=== PATIENT | male | born 1945 | race Caucasian/White ===

== ENCOUNTER 2016-11-15 00:14 | Inpatient (IN) | payer OTHER, MEDICARE ==
[2016-11-15] VITALS (32 sets, daily range): BP systolic 62–144; BP diastolic 43–88; PULSE 58–83; RESP 16–25; TEMP 94.6–99.5; O2SAT 92–100
[~2016-11-15] VITALS: Ht 177.8 cm; Wt 82.3 kg
[~2016-11-15 00:14] MED LIST: ALBU8I INH; ALLO100T PO; ALPR.25 PO; CARV12.52 PO; CITA20TA4 PO; DIGO0.25 PO; DUONI NEB; FURO1TAB93 PO; GABA300 PO; LEVA750T PO; MIRT15TA2 PO; OXYC1SOL5 PO; POTA-243 PO; PRED10PA PO; SIMV20 PO; SYMB160A INH
[2016-11-15] MEDS ORDERED: SODIUM CHLORIDE 0.9% FLUSH 5 ML FLUSH IVF PRN (00:30)
[2016-11-15] MEDS ORDERED: ETOMIDATE 20 MG/10 ML VIAL ONE (00:30)
[2016-11-15] MEDS ORDERED: PROPOFOL 1000 MG/100 ML INJ 100 ML ONE (00:38)
[2016-11-15] MEDS ORDERED: PROPOFOL 1000 MG/100 ML INJ 100 ML IV SCH (00:45)
[2016-11-15] MEDS ORDERED: ETOMIDATE 20 MG/10 ML VIAL IV PUSH ONE (00:45)
[2016-11-15] MEDS ORDERED: VANCOMYCIN INJ 1,000 MG in SODIUM CHLOR 0.9% 250 ML INJ 250 ML IV ONE (00:45)
[2016-11-15] MEDS ORDERED: SUCCINYLCHOLINE CHLORIDE 200 MG/10 ML VIAL IV PUSH ONE (00:45)
[2016-11-15] MEDS ORDERED: CEFEPIME INJ 2,000 MG in SODIUM CHLORIDE 0.9% INJ 100 ML IV ONE (00:45)
[2016-11-15] MEDS ORDERED: SODIUM CHLOR 0.9% 1000 ML INJ 1,000 ML IV ONE ×2 (00:45)
--- NOTE | 2016-11-15 01:01 | RADRPT ---
EXAM DATE/TIME: 11/15/2016 00:38 [facility] COMPARISON: No previous studies available for comparison. INDICATIONS : Post intubation. MEDICAL HISTORY : None. SURGICAL HISTORY : None. ENCOUNTER: Initial ACUITY: 1 day PAIN SCORE: Non-responsive. LOCATION: Bilateral chest FINDINGS: The ET tube appears to be in good position overlying the tracheal air shadow. There is no pneumothora x. The right lung is clear and well-aerated. There is an infiltrate in the left lung base suggestive of atelectasis. The heart size is enlarged. There is evidence of previous cardiothoracic surgery. The re is a pacemaker overlying the left chest. Bony structures are grossly intact. CONCLUSION: ET tube in good position. No pneumothorax. Santy Garcia MD on November 15, 2016 at 0:59 Board Certified Radiologist. This report was verified electronically.
--- NOTE | 2016-11-15 01:04 | RADRPT ---
EXAM DATE/TIME: 11/15/2016 00:54 [facility] COMPARISON: No previous studies available for comparison. INDICATIONS : Found unresponsive. RADIATION DOSE: 50.33 CTDIvol (mGy) MEDICAL HISTORY : Non-responsive. SURGICAL HISTORY : Non-responsive. ENCOUNTER: Initial ACUITY: 1 day PAIN SCALE: Non-responsive LOCATION: cranial TECHNIQUE: Multiple contiguous axial images were obtained of the head. Using automated exposure control and adj ustment of the mA and/or kV according to patient size, radiation dose was kept as low as reasonably a chievable to obtain optimal diagnostic quality images. FINDINGS: CEREBRUM: The ventricles are normal for age. There is bilateral cortical atrophy. No evidence of midline shift , mass lesion, hemorrhage or acute infarction. No extra-axial fluid collections are seen. POSTERIOR FOSSA: The cerebellum and brainstem are intact. The 4th ventricle is midline. The cerebellopontine angle i s unremarkable. EXTRACRANIAL: The visualized portion of the orbits is intact. SKULL: The calvaria is intact. No evidence of skull fracture. CONCLUSION: 1. No focal or acute intracranial hemorrhage. 2. Bilateral cortical atrophy. Santy Garcia MD on November 15, 2016 at 1:01 Board Certified Radiologist. This report was verified electronically.
[2016-11-15 01:29] LABS: BLOOD, URINE NEG (NEG); COMMENT (UR) CATH-CULT NOT IND; CULTURE IF INDICATED CATH CULTURE NOT IND; GLUCOSE,URINE NEG (NEG); HYALINE CAST, URINE 3 /lpf (RARE); KETONE, URINE NEG (NEG); MUCUS URINE FEW /lpf (OCC); NITRITE,URINE NEG (NEG); PH, URINE 5.5 (5.0-8.5); RENAL EPITHELIAL CELLS <1 /hpf; SQUAMOUS EPITHELIAL CELL URINE <1 /hpf (0-5); URINE COLOR YELLOW (YELLW/STRAW)
[2016-11-15 01:38] LABS: AMPHETAMINE, URINE NEG (NEG); BARBITURATES, URINE NEG (NEG); COCAINE, URINE NEG (NEG)
[2016-11-15 01:40] LABS: BLOOD GAS CARBOXYHEMOGLOBIN 2.4 % (0-4); BLOOD GAS HCO3 25 mmol/L (22-26); BLOOD GAS O2 HGB SATURATION 96 % (90-100); BLOOD GAS OXYGEN CONTENT 18.7 Vol % (12.0-20.0); BLOOD GAS PCO2 51 mmHg (38-42); BLOOD GAS PO2 364 mmHG (61-120); BLOOD GAS TOTAL HGB 13.3 G/DL (12.0-16.0); CRITICAL VALUE YES; DRAW SITE RT BRACHIAL; FIO2 100 %; OXYGEN DEVICE VENTILATOR; TEMP CORR TO 98.6; VENT SETTINGS SEE COMMENTS
[2016-11-15 01:41] LABS: NUMBER OF ARTERIAL PUNCTURES 1; STAT NO
[2016-11-15 01:47] LABS: AUTOMATED NEUTROPHIL # 10.8 TH/MM3 (1.8-7.7); BASOPHIL % 0.1 % (0.0-2.0); EOSINOPHIL % 0.1 % (0.0-4.0); HEMATOCRIT 39.7 % (39.0-51.0); HEMO FLAGS DIFF FINAL; LYMPH % 3.1 % (9.0-44.0); LYMPHOCYTE # 0.4 TH/MM3 (1.0-4.8); MEAN CELL VOLUME 94.7 FL (80.0-100.0); MEAN CORPUSCULAR HGB CONC 33.8 % (32.0-36.0); MONO % 5.6 % (0.0-8.0); NEUT % 91.1 % (16.0-70.0); PLATELET COUNT 111 TH/MM3 (150-450); RED BLOOD COUNT 4.19 MIL/MM3 (4.50-5.90); RED CELL DISTRIBUTION WIDTH 14.2 % (11.6-17.2); WHITE BLOOD COUNT 11.9 TH/MM3 (4.0-11.0)
[2016-11-15 02:01] LABS: APTT (PATIENT) 21.2 SEC (24.3-30.1); PROTHROMBIN TIME - PATIENT 11.4 SEC (9.8-11.6)
[2016-11-15 02:18] LABS: ACETAMINOPHEN LESS THAN 2.0 MCG/ML (10.0-30.0); ALKALINE PHOSPHATASE 77 U/L (45-117); ALT (GPT) 135 U/L (12-78); ANION GAP 3 MEQ/L (5-15); AST (GOT) 80 U/L (15-37); BICARBONATE 33.3 MEQ/L (21.0-32.0); BLOOD UREA NITROGEN 18 MG/DL (7-18); CALCIUM-PROTEIN CORRECTED 8.1 MG/DL (8.5-10.1); CHLORIDE 105 MEQ/L (98-107); GLOMERULAR FILTRATION RATE 60 ML/MIN (>89); POTASSIUM 5.7 MEQ/L (3.5-5.1); SODIUM (NA) 141 MEQ/L (136-145); TOTAL BILIRUBIN ADULT 1.5 MG/DL (0.2-1.0)
[2016-11-15 02:47] LABS: BLOOD GAS BASE EXCESS -2.1 mmol/L (-2-2); BLOOD GAS CARBOXYHEMOGLOBIN 2.4 % (0-4); BLOOD GAS HCO3 23 mmol/L (22-26); BLOOD GAS METHEMOGLOBIN 1.9 % (0-2); BLOOD GAS O2 HGB SATURATION 88 % (90-100); BLOOD GAS OXYGEN CONTENT 15.6 Vol % (12.0-20.0); BLOOD GAS PCO2 45 mmHg (38-42); BLOOD GAS PO2 59 mmHG (61-120); BLOOD GAS TOTAL HGB 12.5 G/DL (12.0-16.0); TEMP CORR TO 98.6
[2016-11-15 02:48] LABS: CRITICAL VALUE YES; OXYGEN DEVICE VENTILATOR
[2016-11-15 02:49] LABS: FIO2 40 %
[2016-11-15 02:50] LABS: DRAW SITE RT BRACHIAL; NUMBER OF ARTERIAL PUNCTURES 1; STAT NO
[2016-11-15] MEDS: SODIUM CHLOR 0.9% 1000 ML INJ 1,000 ML IV SCH ×3 (03:41→17:01)
[2016-11-15] MEDS ORDERED: METOCLOPRAMIDE HCL 10 MG/2 ML VIAL IV PRN (03:45)
[2016-11-15] MEDS ORDERED: CHLORHEXIDINE GLUCONATE 2 % 1 PACK (2 CLOTHS) TOP PRN (03:45)
[2016-11-15] MEDS ORDERED: SODIUM CHLORIDE 0.9% FLUSH 5 ML FLUSH IV FLUSH PRN (03:45)
[2016-11-15] MEDS ORDERED: ONDANSETRON HCL 4 MG/2 ML VIAL IV PRN (03:45)
[2016-11-15] MEDS ORDERED: ACETAMINOPHEN 325 MG TAB PO PRN (03:45)
[2016-11-15] MEDS ORDERED: MISCELLANEOUS NURSING INFORMATION XX SCH (03:45)
[2016-11-15] MEDS ORDERED: MIDAZOLAM HCL 2 MG/2 ML VIAL IV PRN (03:45)
--- NOTE | 2016-11-15 03:52 | HHI.HP ---
HPI Service Critical Care Medicine Primary Care Physician Unknown Admission Diagnosis altered mental status Diagnosis: Travel History International Travel<30 Days: No Contact w/Intl Traveler <30 Da: No Traveled to Known Affected Are: No History of Present Illness 60s-70s year old gentleman who presented to the emergency department having been found by his roommate unresponsive. There were large amount of pills in the room and his roommate says that he does take a lot of opiates. The patient was found not to have a gag reflex, he was given 1.6 of Narcan without improvement. He was intubated without any medications. He was hypotensive and was started on dopamine by EMS. Review of Systems ROS Unable to obtain, patient is unresponsive and intubated. Past Family Social History Allergies: Coded Allergies: UNOBTAINABLE (Unverified , 11/15/16) Past Medical History Unable to obtain, patient is unresponsive and intubated. Past Surgical History Unable to obtain, patient is unresponsive and intubated. Reported Medications Unable to obtain, patient is unresponsive and intubated. Active Ordered Medications Current Medications Medications (Trade) Dose Ordered Sig/Brent Route PRN Reason Start Time Stop Time Status Last Admin Dose Admin Propofol 100 ml @ 0 mls/hr TITRATE IV 11/15/16 00:45 11/15/16 02:31 Sodium Chloride (NS 1000 ml Inj) 1,000 ml @ 150 mls/hr Q6H40M IV 11/15/16 03:41 IV Flush (NS Flush) 2 ml UNSCH PRN IV FLUSH FLUSH AFTER USING IV ACCESS 11/15/16 03:45 IV Flush (NS Flush) 2 ml BID IV FLUSH 11/15/16 09:00 Acetaminophen (Tylenol) 650 mg Q6H PRN PO PAIN 1-10 AND/OR FEVER >101F 11/15/16 03:45 Morphine Sulfate (Morphine Inj) 2 mg Q2H PRN IV PAIN SCALE 6 TO 10 11/15/16 03:45 Famotidine (Pepcid Inj) 20 mg Q12HR IV PUSH 11/15/16 09:00 Midazolam HCl (Versed Inj) 2 mg Q1H PRN IV SEDATION 11/15/16 03:45 Lorazepam (Ativan Inj) 1 mg Q1H PRN IV Agitation/Sedation 11/15/16 03:45 Artificial Tears (Tears Naturale Opth Soln) 1 drop TID EACH EYE 11/15/16 09:00 Ondansetron HCl (Zofran Inj) 4 mg Q6H PRN IV NAUSEA OR VOMITING 11/15/16 03:45 Metoclopramide HCl (Reglan Inj) 10 mg Q6H PRN IV NAUSEA OR VOMITING 11/15/16 03:45 Docusate Sodium (Colace Liq) 100 mg Q12HR G-TUBE 11/15/16 09:00 Heparin Sodium (Porcine) (Heparin Inj) 5,000 units Q12HR SQ 11/15/16 09:00 Miscellaneous Information 1 Q361D XX 11/15/16 03:45 Chlorhexidine Gluconate (Chlorhexidine 2% Cloth) 3 pack Taper DAILY@04 TOP 11/15/16 04:00 11/11/17 03:59 Chlorhexidine Gluconate (Chlorhexidine 2% Cloth) 3 pack UNSCH PRN TOP HYGIENIC CARE 11/15/16 03:45 Family History Unable to obtain, patient is unresponsive and intubated. Social History Unable to obtain, patient is unresponsive and intubated. Physical Exam Vital Signs Vital Signs Date Time Temp Pulse Resp B/P Pulse Ox O2 Delivery O2 Flow Rate FiO2 11/15/16 02:15 59 24 106/68 98 Ventilator 40 11/15/16 02:00 60 24 103/60 97 Ventilator 40 11/15/16 01:45 60 24 144/88 100 Ventilator 40 11/15/16 01:30 59 24 87/55 100 Ventilator 40 11/15/16 01:15 60 24 142/73 100 Ventilator 40 11/15/16 01:00 60 24 137/71 100 Ventilator 40 11/15/16 00:45 60 24 136/69 100 Ventilator 40 11/15/16 00:35 100 100 11/15/16 00:35 100 100 11/15/16 00:35 58 24 128/65 100 Ventilator 40 11/15/16 00:30 63 24 138/65 98 15 11/15/16 00:25 61 24 88/48 99 15 11/15/16 00:20 60 24 64/49 99 15 11/15/16 00:15 Bag Valve 11/15/16 00:14 94.6 60 18 66/47 99 Physical Exam Vital Signs Date Time Temp Pulse Resp B/P Pulse Ox O2 Delivery O2 Flow Rate FiO2 11/15/16 04:15 60 24 106/66 100 Ventilator 40 11/15/16 00:30 15 11/15/16 00:14 94.6 GENERAL: disheveled patient. SKIN: Warm and dry. HEAD: Normocephalic. EYES: No scleral icterus. No injection or drainage. NECK: Supple, trachea midline. No JVD or lymphadenopathy. CARDIOVASCULAR: Regular rate and rhythm without murmurs, gallops, or rubs. RESPIRATORY: Breath sounds equal bilaterally. No accessory muscle use. GASTROINTESTINAL: Abdomen soft, non-tender, nondistended. MUSCULOSKELETAL: No cyanosis, or edema. BACK: Nontender without obvious deformity. No CVA tenderness. EXTREMITIES: withdraws to pain Laboratory Laboratory Tests Test 11/15/16 11/15/16 11/15/16 11/15/16 00:20 01:15 01:29 01:30 Salicylates Level LESS THAN 1.7 Urine Color YELLOW Urine Turbidity CLEAR Urine pH 5.5 Urine Specific [place] 1.013 Urine Protein NEG Urine Glucose (UA) NEG Urine Ketones NEG Urine Occult Blood NEG Urine Nitrite NEG Urine Bilirubin NEG Urine Urobilinogen LESS THAN 2.0 Urine Leukocyte Esterase NEG Urine WBC LESS THAN 1 Urine Squamous Epithelial <1 Cells Urine Renal Epithelial Cells <1 Urine Hyaline Casts 3 Urine Mucus FEW Microscopic Urinalysis Comment CATH-CULT NOT IND Urine Opiates Screen NEG Urine Barbiturates Screen NEG Urine Amphetamines Screen NEG Urine Benzodiazepines Screen POS Urine Cocaine Screen NEG Urine Cannabinoids Screen POS Blood Gas Puncture Site RT BRACHIAL Blood Gas Patient Temperature 98.6 Blood Gas HCO3 25 Blood Gas Base Excess -1.0 Blood Gas Oxygen Saturation 96 Arterial Blood pH 7.30 Arterial Blood Partial 51 Pressure CO2 Arterial Blood Partial 364 Pressure O2 Arterial Blood Oxygen Content 18.7 Arterial Blood 2.4 Carboxyhemoglobin Arterial Blood Methemoglobin 2.0 Blood Gas Hemoglobin 13.3 Oxygen Delivery Device VENTILATOR Blood Gas Ventilator Setting SEE COMMENTS Blood Gas Inspired Oxygen 100 White Blood Count 11.9 Red Blood Count 4.19 Hemoglobin 13.4 Hematocrit 39.7 Mean Corpuscular Volume 94.7 Mean Corpuscular Hemoglobin 32.0 Mean Corpuscular Hemoglobin 33.8 Concent Red Cell Distribution Width 14.2 Platelet Count 111 Mean Platelet Volume 6.9 Neutrophils (%) (Auto) 91.1 Lymphocytes (%) (Auto) 3.1 Monocytes (%) (Auto) 5.6 Eosinophils (%) (Auto) 0.1 Basophils (%) (Auto) 0.1 Neutrophils # (Auto) 10.8 Lymphocytes # (Auto) 0.4 Monocytes # (Auto) 0.7 Eosinophils # (Auto) 0.0 Basophils # (Auto) 0.0 CBC Comment DIFF FINAL Differential Comment Prothrombin Time 11.4 Prothromb Time International 1.0 Ratio Activated Partial 21.2 Thromboplast Time Sodium Level 141 Potassium Level 5.7 Chloride Level 105 Carbon Dioxide Level 33.3 Anion Gap 3 Blood Urea Nitrogen 18 Creatinine 1.06 Estimat Glomerular Filtration 60 Rate Random Glucose 125 Lactic Acid Level 0.9 Calcium Level 7.2 Protein Corrected Calcium 8.1 Total Bilirubin 1.5 Aspartate Amino Transf 80 (AST/SGOT) Alanine Aminotransferase 135 (ALT/SGPT) Alkaline Phosphatase 77 Ammonia 17 Troponin I 0.06 B-Type Natriuretic Peptide 230 Total Protein 5.5 Albumin 2.7 Thyroid Stimulating Hormone 0.448 3rd Gen Acetaminophen Level LESS THAN 2.0 Ethyl Alcohol Level LESS THAN 3 Test 11/15/16 02:32 Blood Gas Puncture Site RT BRACHIAL Blood Gas Patient Temperature 98.6 Blood Gas HCO3 23 Blood Gas Base Excess -2.1 Blood Gas Oxygen Saturation 88 Arterial Blood pH 7.33 Arterial Blood Partial 45 Pressure CO2 Arterial Blood Partial 59 Pressure O2 Arterial Blood Oxygen Content 15.6 Arterial Blood 2.4 Carboxyhemoglobin Arterial Blood Methemoglobin 1.9 Blood Gas Hemoglobin 12.5 Oxygen Delivery Device VENTILATOR Blood Gas Ventilator Setting SEE COMMENT Blood Gas Inspired Oxygen 40 Date/Time Procedure Status Source Growth 11/15/16 00:40 Aerobic Blood Culture Received Blood Peripheral Pending 11/15/16 00:40 Anaerobic Blood Culture Received Blood Peripheral Pending Result Diagram: 11/15/16 0130 11/15/16129 Imaging Last [address] 11/15/1616 Signed Impressions: Service Date/Time: October 00:54 - CONCLUSION: 1. No focal or acute intracranial hemorrhage. 2. Bilateral cortical atrophy. Santy Garcia MD Chest X-Ray 11/15/1616 Signed Impressions: Service Date/Time: October 00:38 - CONCLUSION: ET tube in good position. No pneumothorax. Santy Garcia MD Assessment and Plan Problem List: (1) Altered mental status ICD Code: R41.82 Status: Acute (2) Respiratory failure ICD Code: J96.90 Status: Acute Assessment and Plan Respiratory failure - intubated for an airway protection - mechanical ventilation - head > 30 - no weaning until neurologically improved AMS - CT head negative - urine tox positive only for benzo and THC - anoxic hit? - EEG - Neurology consult - Interrogate PPM Hyperkalemia - i.v. fluids - repeat labs DVT/GI prophylaxis - Heparin/Pepcid Critical Care: The total critical care time was 35 minutes. Time to perform other separately billable procedures was not included in the critical care time. Problem Qualifiers (1) Altered mental status: Qualified Code: R40.2431 - [place] coma scale total score 3-8, in the field ( EMT or ambulance) Saurabh Viramontes MD Nov 15, 2016 03:52
[2016-11-15] MEDS: CHLORHEXIDINE GLUCONATE 2 % 1 PACK (2 CLOTHS) TOP SCH (04:00)
--- NOTE | 2016-11-15 04:01 | PD ---
HPI Chief Complaint: Respiratory Distress Time Seen by Provider: 00:17 Travel History International Travel<30 days: No Contact w/Intl Traveler<30days: No Traveled to known affect area: No History of Present Illness HPI This is a gentleman who presented to the emergency department having been found by his roommate unresponsive. EMS said they were a large amount of pills in the room and his roommate says that he does take a lot of opiates. History was very limited and the said the roommate was somewhat disorganized. In the field the patient was found not to have a gag reflex. He was given 1.6 of Narcan with no improvement. He was intubated without any medications. He was hypotensive. EMS was concerned that the patient may have pitting edema in the lower extremities so they started him on dopamine. [facility] Past Medical History Medical History: Unable to Obtain Diminished Hearing: No (UTO) Past Surgical History Surgical History: Unable to Obtain Social History Alcohol Use: No (UTO) Tobacco Use: No (UTO) Substance Use: No (UTO) Allergies-Medications (Allergen,Severity, Reaction): Coded Allergies: UNOBTAINABLE (Unverified , 11/15/16) Review of Systems ROS Limitations: Intubated Physical Exam Narrative GENERAL:Well appearing, no acute distress SKIN: Dry HEAD: Atraumatic. Normocephalic. EYES: Pupils are 2 mm, equal and reactive ENT: Moist mucous membranes NECK: Trachea midline. CARDIOVASCULAR: Regular rate and rhythm. No murmur appreciated. 2+ bilateral lower extremity pitting edema. RESPIRATORY: Coarse breath sounds bilaterally. GASTROINTESTINAL: Abdomen soft, non-tender, nondistended. MUSCULOSKELETAL: No obvious deformities. NEUROLOGICAL: Withdrawals to pain, no purposeful movements. Data Data Last Documented VS Vital Signs Date Time Temp Pulse Resp B/P Pulse Ox O2 Delivery O2 Flow Rate FiO2 11/15/16 02:15 59 24 106/68 98 Ventilator 40 11/15/16 00:30 15 11/15/16 00:14 94.6 Orders Electrocardiogram (11/15/16 00:17) Alcohol (Ethanol) (11/15/16 00:17) Ammonia (11/15/16 00:17) Complete Blood Count With Diff (11/15/16 00:17) Comprehensive Metabolic Panel (11/15/16 00:17) Drug Screen, Random Urine (11/15/16 00:17) Prothrombin Time / Inr (Pt) (11/15/16 00:17) Act Partial Throm Time (Ptt) (11/15/16 00:17) Salicylates (Aspirin) (11/15/16 00:17) Troponin I (11/15/16 00:17) Tylenol (Acetaminophen) (11/15/16 00:17) Thyroid Stimulating Hormone (11/15/16 00:17) Lactic Acid Sepsis Protocol (11/15/16 00:17) Urinalysis - C+S If Indicated (11/15/16 00:17) Arterial Blood Gas (Abg) (11/15/16 00:17) Blood Culture (11/15/16 00:17) Chest, Single Ap (11/15/16:17) Ct Brain W/O Iv Contrast(Rout) (11/15/16 00:17) Blood Glucose (11/15/16 00:17) Ecg Monitoring (11/15/16 00:17) Iv Access Insert/Monitor (11/15/16 00:17) Oximetry (11/15/16 00:17) Urinary Catheter Insert/Apply (11/15/16 00:17) Sodium Chloride 0.9% Flush (Ns Flush) (11/15/16 00:30) Ed Poc Ultrasound (11/15/16 00:17) Etomidate Inj (Amidate Inj) (11/15/16 00:30) Etomidate Inj (Amidate Inj) (11/15/16 00:45) Succinylcholine Inj (Quelicin Inj) (11/15/16 00:45) Sodium Chlor 0.9% 1000 Ml Inj (Ns 1000 M (11/15/16 00:45) Sodium Chlor 0.9% 1000 Ml Inj (Ns 1000 M (11/15/16 00:45) Vancomycin Inj (Vancomycin Inj) (11/15/16 00:45) Cefepime Inj (Maxipime Inj) (11/15/16 00:45) Propofol 1000 Mg/100 Ml Inj (Diprivan 10 (11/15/16 00:38) Propofol 1000 Mg/100 Ml Inj (Diprivan 10 (11/15/16 00:45) ^ Infusion (11/15/16 00:43) RASS (11/15/16 00:43) Neurological Rass Scale FARIDEH.Q2H (11/15/16 00:43) B-Type Natriuretic Peptide (11/15/16 01:09) Adonis-Gastric Tube Insert/Mon (11/15/16 01:55) Restraints Non-Violent FARIDEH.Q3H (11/15/16 01:56) Admit Order (Ed Use Only) (11/15/16 02:32) Labs Laboratory Tests Test 11/15/16 11/15/16 11/15/16 11/15/16 00:20 01:15 01:29 01:30 Salicylates Level LESS THAN 1.7 MG/DL Urine Color YELLOW Urine Turbidity CLEAR Urine pH 5.5 Urine Specific [place] 1.013 Urine Protein NEG mg/dL Urine Glucose (UA) NEG mg/dL Urine Ketones NEG mg/dL Urine Occult Blood NEG Urine Nitrite NEG Urine Bilirubin NEG Urine Urobilinogen LESS THAN 2.0 MG/DL Urine Leukocyte Esterase NEG Urine WBC LESS THAN 1 /hpf Urine Squamous Epithelial <1 /hpf Cells Urine Renal Epithelial Cells <1 /hpf Urine Hyaline Casts 3 /lpf Urine Mucus FEW /lpf Microscopic Urinalysis Comment CATH-CULT NOT IND Urine Opiates Screen NEG Urine Barbiturates Screen NEG Urine Amphetamines Screen NEG Urine Benzodiazepines Screen POS Urine Cocaine Screen NEG Urine Cannabinoids Screen POS Blood Gas Puncture Site RT BRACHIAL Blood Gas Patient Temperature 98.6 Blood Gas HCO3 25 mmol/L Blood Gas Base Excess -1.0 mmol/L Blood Gas Oxygen Saturation 96 % Arterial Blood pH 7.30 Arterial Blood Partial 51 mmHg Pressure CO2 Arterial Blood Partial 364 mmHG Pressure O2 Arterial Blood Oxygen Content 18.7 Vol % Arterial Blood 2.4 % Carboxyhemoglobin Arterial Blood Methemoglobin 2.0 % Blood Gas Hemoglobin 13.3 G/DL Oxygen Delivery Device VENTILATOR Blood Gas Ventilator Setting SEE COMMENTS Blood Gas Inspired Oxygen 100 % White Blood Count 11.9 TH/MM3 Red Blood Count 4.19 MIL/MM3 Hemoglobin 13.4 GM/DL Hematocrit 39.7 % Mean Corpuscular Volume 94.7 FL Mean Corpuscular Hemoglobin 32.0 PG Mean Corpuscular Hemoglobin 33.8 % Concent Red Cell Distribution Width 14.2 % Platelet Count 111 TH/MM3 Mean Platelet Volume 6.9 FL Neutrophils (%) (Auto) 91.1 % Lymphocytes (%) (Auto) 3.1 % Monocytes (%) (Auto) 5.6 % Eosinophils (%) (Auto) 0.1 % Basophils (%) (Auto) 0.1 % Neutrophils # (Auto) 10.8 TH/MM3 Lymphocytes # (Auto) 0.4 TH/MM3 Monocytes # (Auto) 0.7 TH/MM3 Eosinophils # (Auto) 0.0 TH/MM3 Basophils # (Auto) 0.0 TH/MM3 CBC Comment DIFF FINAL Differential Comment Prothrombin Time 11.4 SEC Prothromb Time International 1.0 RATIO Ratio Activated Partial 21.2 SEC Thromboplast Time Sodium Level 141 MEQ/L Potassium Level 5.7 MEQ/L Chloride Level 105 MEQ/L Carbon Dioxide Level 33.3 MEQ/L Anion Gap 3 MEQ/L Blood Urea Nitrogen 18 MG/DL Creatinine 1.06 MG/DL Estimat Glomerular Filtration 60 ML/MIN Rate Random Glucose 125 MG/DL Lactic Acid Level 0.9 mmol/L Calcium Level 7.2 MG/DL Protein Corrected Calcium 8.1 MG/DL Total Bilirubin 1.5 MG/DL Aspartate Amino Transf 80 U/L (AST/SGOT) Alanine Aminotransferase 135 U/L (ALT/SGPT) Alkaline Phosphatase 77 U/L Ammonia 17 MCMOL/L Troponin I 0.06 NG/ML B-Type Natriuretic Peptide 230 PG/ML Total Protein 5.5 GM/DL Albumin 2.7 GM/DL Thyroid Stimulating Hormone 0.448 uIU/ML 3rd Gen Acetaminophen Level LESS THAN 2.0 MCG/ML Ethyl Alcohol Level LESS THAN 3 MG/DL Test 11/15/16 02:32 Blood Gas Puncture Site RT BRACHIAL Blood Gas Patient Temperature 98.6 Blood Gas HCO3 23 mmol/L Blood Gas Base Excess -2.1 mmol/L Blood Gas Oxygen Saturation 88 % Arterial Blood pH 7.33 Arterial Blood Partial 45 mmHg Pressure CO2 Arterial Blood Partial 59 mmHG Pressure O2 Arterial Blood Oxygen Content 15.6 Vol % Arterial Blood 2.4 % Carboxyhemoglobin Arterial Blood Methemoglobin 1.9 % Blood Gas Hemoglobin 12.5 G/DL Oxygen Delivery Device VENTILATOR Blood Gas Ventilator Setting SEE COMMENT Blood Gas Inspired Oxygen 40 % [facility] Medical Decision Making Medical Screen Exam Complete: Yes Emergency Medical Condition: Yes Interpretation(s) Hypothermic, hypotensive Mild leukocytosis Mild hyperkalemia Total bilirubin is 1.5 Troponin is 0.06 TSH is normal BNP is indeterminate Lactic acidosis 0.9 Urine drug screen is positive for benzodiazepines and cannabinoid. ABG: Respiratory acidosis Last [address] 11/15/1616 Signed Impressions: Service Date/Time: October 00:54 - CONCLUSION: 1. No focal or acute intracranial hemorrhage. 2. Bilateral cortical atrophy. Santy Garcia MD Chest X-Ray 11/15/1616 Signed Impressions: Service Date/Time: October 00:38 - CONCLUSION: ET tube in good position. No pneumothorax. Santy Garcia MD Differential Diagnosis Intracranial hemorrhage, stroke, drug overdose, electrolyte abnormality, sepsis a myocardial infarction Narrative Course This is a patient who presents to the emergency department having been found unresponsive by his roommates. He was intubated in the field after no response to Narcan. Here in the emergency department he was placed on a monitor and further IV access was established. He was immediately started on Levophed said due to a systolic blood pressure in the 60s. At some point his endotracheal tube became dislodged and I reintubated him using rapid sequence intubation. Patient was given 3 L of IV fluid as well as broad-spectrum antibiotics. I did a bedside ultrasound and his IVC was collapsible and he looked very dry. He did look like he had a depressed ejection fraction. Patient was able to be weaned off of Levophed Patient will be admitted to the intensive care unit for further management. Critical Care Narrative Aggregate critical care time was 60 minutes. Time to perform other separately billable procedures was not included in the critical care time. My time did not include minutes spent treating any other patients simultaneously or on activities that did not directly contribute to the patient's treatment. The services I provided to this patient were to treat and/or prevent clinically significant deterioration that could result in: Disability, I provided critical care services requiring my management, as noted below: Chart data review, documentation time, medication orders and management, vital sign assessments/reviewing monitor data, ordering and reviewing lab tests, ordering and interpreting/reviewing x-rays and diagnostic studies, care of the patient and discussion of the patient with the admitting physicians. Procedures Procedure Narrative After the risks and benefits were discussed the following procedure was performed: INTUBATION: The patient was put in optimal position for the procedure. Rapid sequence intubation was initiated by me using 20 milligrams of etomidate IV and 120 milligrams of succinylcholine IV. The patient was intubated with a 8.0 cuffed endotracheal tube. Tube placement was confirmed by visualization of the tube and balloon passing through the cords, capnometry and subsequent chest x- ray. Breath sounds were equal and well aerated bilaterally postintubation. No breath sounds over stomach. Patient tolerated procedure well. Diagnosis Primary Impression: Altered mental status Qualified Code: R40.2431 - [place] coma scale total score 3-8, in the field ( EMT or ambulance) Admitting Information Admitting Physician Requests: Admit Maddie Vaughn MD Nov 15, 2016 04:01
[2016-11-15] MEDS: RESP: ALBUTEROL 2.5 MG/IPRATROPIUM 0.5 MG NEB (PRN) INH (07:13)
[2016-11-15] MEDS: ARTIFICIAL TEARS OPTH SOLN 15 ML BTL EACH EYE SCH ×3 (09:00→18:00)
[2016-11-15] MEDS: DOCUSATE SODIUM 100 MG/10 ML UDC G-TUBE SCH ×2 (09:23→21:04)
[2016-11-15] MEDS: SODIUM CHLORIDE 0.9% FLUSH 5 ML FLUSH IV FLUSH SCH ×2 (09:23→21:05)
[2016-11-15] MEDS: HEPARIN SODIUM - SQ 10,000 UNITS/ML VIAL SQ SCH ×2 (09:23→21:05)
[2016-11-15] MEDS: FAMOTIDINE 20 MG/2 ML VIAL IV PUSH SCH ×2 (09:42→21:04)
[2016-11-15] MEDS: LORazepam 2 MG/ML VIAL IV PRN (09:44)
[2016-11-15] MEDS: RESP: ALBUTEROL 2.5 MG/IPRATROPIUM 0.5 MG NEB (SCH) NEB ×3 (10:00→21:40)
[2016-11-15 11:22] LABS: INDIRECT BILIRUBIN 0.5 MG/DL (0.0-0.8); TOTAL BILIRUBIN ADULT 0.9 MG/DL (0.2-1.0)
--- NOTE | 2016-11-15 12:06 | EC ---
Study Study Date:11/15/2016 STUDY CONCLUSIONS SUMMARY - Left ventricle: The cavity size was normal. Wall thickness was normal. Systolic function was at the lower limits of normal. The estimated ejection fraction was in the range of 50% to 55%. Wall motion was normal; there were no regional wall motion abnormalities. - Ventricular septum: Septal motion showed dyssynergy. These changes are consistent with right ventricular pacing. - Aortic valve: Valve area: 2.19cm^2(VTI). Valve area: 2.05cm^2 (Vmax). - Mitral valve: Mild regurgitation. - Tricuspid valve: Mild regurgitation. If LV function is below 40, please consider prescribing an ACEI or ARB or document rationale for non-use. PROCEDURE DATA STUDY STATUS: Elective. Procedure: Transthoracic echocardiography. Image quality was good. Scanning was performed from the parasternal, apical, and subcostal acoustic windows. Study completion: The patient tolerated the procedure well. Transthoracic echocardiography. M-mode, complete 2D, complete spectral Doppler, and color Doppler. Patient status: Inpatient. CARDIAC ANATOMY LEFT VENTRICLE: The cavity size was normal. Wall thickness was normal. Systolic function was at the lower limits of normal. The estimated ejection fraction was in the range of 50% to 55%. Wall motion was normal; there were no regional wall motion abnormalities. AORTIC VALVE: Trileaflet; mildly thickened, mildly calcified leaflets. Doppler: Transvalvular velocity was within the normal range. There was no stenosis. No regurgitation. Valve area: 2.19cm^2(VTI). Valve area: 2.05cm^2 (Vmax). Mean gradient: 3mm Hg (S). AORTA: Aortic root: The aortic root was mildly dilated. MITRAL VALVE: Structurally normal valve. Doppler: Transvalvular velocity was within the normal range. There was no evidence for stenosis. Mild regurgitation. Peak gradient: 3mm Hg (D). LEFT ATRIUM: The atrium was normal in size. RIGHT VENTRICLE: The cavity size was normal. Wall thickness was normal. Pacer wire or catheter noted in right ventricle. VENTRICULAR SEPTUM: Septal motion showed dyssynergy. These changes are consistent with right ventricular pacing. PULMONIC VALVE: Doppler: Transvalvular velocity was within the normal range. There was no evidence for stenosis. No regurgitation. TRICUSPID VALVE: Structurally normal valve. Doppler: Transvalvular velocity was within the normal range. Mild regurgitation. PULMONARY ARTERY: The main pulmonary artery was normal-sized. Systolic pressure was within the normal range. RIGHT ATRIUM: The atrium was normal in size. Pacer wire or catheter noted in right atrium. PERICARDIUM: There was no pericardial effusion. SYSTEMIC VEINS: Inferior vena cava: The vessel was normal in size. BASIC MEASUREMENTS ADULT NORMAL Left ventricle LV internal dimension, ED, chordal level, *61.6 mm 43-52 PLAX LV internal dimension, ES, chordal level, *46.2 mm 23-38 PLAX Fractional shortening, chordal level, PLAX *25 % >29 LV posterior wall thickness, ED 15.5 mm IVS/LVPW ratio, ED 1 <1.3 Ventricular septum Septal thickness, ED 15.5 mm Aortic valve Leaflet separation 25 mm 15-26 Aorta Root diameter, ED 38 mm Left atrium Anterior-posterior dimension 40 mm BASIC MEASUREMENTS ADULT NORMAL Aortic valve Leaflet separation 25 mm 15-26 DOPPLER MEASUREMENTS ADULT NORMAL Aortic valve Peak velocity, S 121 cm/s Mean velocity, S 82.9 cm/s VTI, S 21.8 cm Mean gradient, S 3 mm Hg Valve area, VTI 2.19 cm^2 Valve area, Vmax 2.05 cm^2 Mitral valve Peak E-wave velocity 81.4 cm/s Peak A-wave velocity 104 cm/s Deceleration time 180 ms 150-230 Peak gradient, D 3 mm Hg Peak E/A ratio 0.8 Tricuspid valve Regurgitant peak velocity 299 cm/s Peak RV-RA gradient, S 36 mm Hg Maximal regurgitant velocity 299 cm/s Pulmonic valve Peak velocity, S 86.5 cm/s LEGEND: Mean values are shown as u=mean value. Asterisk (*) murguia values outside specified normal range. Prepared and signed by Pratik Faye [id number]
--- NOTE | 2016-11-15 16:10 | EKG ---
Date Performed: 11/15/2016 Time Performed: 00:16:48 PTAGE: 89 years EKG: ELECTRONIC ATRIAL PACEMAKER MARKED RIGHT AXIS DEVIATION RIGHT BUNDLE BRANCH BLOCK INFERIOR MYOCARDIAL INFARCTION ABNORMAL ECG INTERPRETATION BASED ON A DEFAULT AGE OF 38 YEARS NO PREVIOUS TRACING DOCTOR: Kevin Kim Interpretating Date/Time 11/15/2016 16:08:35
[2016-11-16] VITALS (10 sets, daily range): BP systolic 91–113; BP diastolic 54–71; PULSE 60–79; RESP 23–31; TEMP 98–99.1; O2SAT 95–96
[2016-11-16] MEDS: RESP: ALBUTEROL 2.5 MG/IPRATROPIUM 0.5 MG NEB (SCH) NEB ×4 (03:56→21:22)
[2016-11-16] MEDS: CHLORHEXIDINE GLUCONATE 2 % 1 PACK (2 CLOTHS) TOP SCH (04:00)
[2016-11-16 06:51] LABS: BASOPHIL % 0.4 % (0.0-2.0); EOSINOPHIL # 0.1 TH/MM3 (0-0.4); HEMATOCRIT 36.7 % (39.0-51.0); LYMPH % 21.5 % (9.0-44.0); LYMPHOCYTE # 1.8 TH/MM3 (1.0-4.8); MEAN CELL VOLUME 95.4 FL (80.0-100.0); MEAN CORPUSCULAR HEMOGLOBIN 32.4 PG (27.0-34.0); MEAN CORPUSCULAR HGB CONC 33.9 % (32.0-36.0); MONO % 7.6 % (0.0-8.0); NEUT % 69.5 % (16.0-70.0); PLATELET COUNT 87 TH/MM3 (150-450); RED BLOOD COUNT 3.84 MIL/MM3 (4.50-5.90); RED CELL DISTRIBUTION WIDTH 14.3 % (11.6-17.2); WHITE BLOOD COUNT 8.6 TH/MM3 (4.0-11.0)
[2016-11-16 06:55] LABS: HEMO FLAGS AUTO DIFF
--- NOTE | 2016-11-16 07:19 | MG ---
cc: REGINE ALCARAZ M.D. Lab No: [id number]____ Date: 11/15/2016 Age: 71 Sex: M Race: __ REFERRING PHYSICIAN Dr. Viramontes INDICATIONS An EEG was obtained on this 71-year-old patient with a history of unresponsiveness. MEDICATIONS 1. Vancomycin 2. Cefepime 3. Ethoxamide DESCRIPTION The patient is asleep. This EEG shows a lot of low amplitude beta rhythms diffusely. There is some theta activity in the central and posterior head regions. The background seems to be somewhat poorly reactive. There is artifact. Later on there is some background change indicating some partial awakening and some alpha activity is encountered. Photic stimulation was unremarkable. INTERPRETATION Abnormal EEG because of generalized slowing and no epileptiform features are present on the study. The findings are suggestive of a diffuse disturbance of cerebral function. MD LUL Sr/LION /8:11 PM /7:16 AM
--- NOTE | 2016-11-16 07:30 | HHI.CCPN ---
Subjective Remarks/Hospital Course 60s-70s year old gentleman who presented to the emergency department having been found by his roommate unresponsive. There were large amount of pills in the room and his roommate says that he does take a lot of opiates. The patient was found not to have a gag reflex, he was given 1.6 of Narcan without improvement. He was intubated without any medications. He was hypotensive and was started on dopamine by EMS. 11/16 No events overnight. Patient is lying in bed in NAD. Afebrile. Objective Vital Signs Date Time Temp Pulse Resp B/P Pulse Ox O2 Delivery O2 Flow Rate FiO2 11/16/16 04:00 60 11/16/16 04:00 99.1 28 112/71 95 11/15/16 21:41 Nasal Cannula 4.00 11/15/16 08:00 30 Intake and Output 11/15/16 11/15/16 11/16/16 08:00 16:00 00:00 Intake Total 55 ml 800 ml 2655 ml Output Total 300 ml 500 ml Balance -245 ml 300 ml 2655 ml Result Diagram: 11/16/16 0602 11/15/16 0130 Other Results Laboratory Tests Test 11/15/16 11/16/16 10:30 06:02 Total Bilirubin 0.9 MG/DL Direct Bilirubin 0.4 MG/DL Indirect Bilirubin 0.5 MG/DL Aspartate Amino Transf 93 U/L (AST/SGOT) Alanine Aminotransferase 140 U/L (ALT/SGPT) Alkaline Phosphatase 91 U/L Total Creatine Kinase 71 U/L Troponin I 0.07 NG/ML Total Protein 4.9 GM/DL Albumin 2.4 GM/DL White Blood Count 8.6 TH/MM3 Red Blood Count 3.84 MIL/MM3 Hemoglobin 12.4 GM/DL Hematocrit 36.7 % Mean Corpuscular Volume 95.4 FL Mean Corpuscular Hemoglobin 32.4 PG Mean Corpuscular Hemoglobin 33.9 % Concent Red Cell Distribution Width 14.3 % Platelet Count 87 TH/MM3 Mean Platelet Volume 6.9 FL Neutrophils (%) (Auto) 69.5 % Lymphocytes (%) (Auto) 21.5 % Monocytes (%) (Auto) 7.6 % Eosinophils (%) (Auto) 1.0 % Basophils (%) (Auto) 0.4 % Neutrophils # (Auto) 6.0 TH/MM3 Lymphocytes # (Auto) 1.8 TH/MM3 Monocytes # (Auto) 0.6 TH/MM3 Eosinophils # (Auto) 0.1 TH/MM3 Basophils # (Auto) 0.0 TH/MM3 CBC Comment AUTO DIFF Imaging Last Impressions Head CT 11/15/1616 Signed Impressions: Service Date/Time: October 00:54 - CONCLUSION: 1. No focal or acute intracranial hemorrhage. 2. Bilateral cortical atrophy. Santy Garcia MD Chest X-Ray 11/15/1616 Signed Impressions: Service Date/Time: October 00:38 - CONCLUSION: ET tube in good position. No pneumothorax. Santy Garcia MD Objective Remarks GENERAL: Patient is 71 yo lying in bed in NAD. SKIN: Warm and dry. HEAD: Normocephalic. EYES: No scleral icterus. No injection or drainage. NECK: Supple, trachea midline. No JVD or lymphadenopathy. CARDIOVASCULAR: Regular rate and rhythm without murmurs, gallops, or rubs. RESPIRATORY: Breath sounds equal bilaterally. No accessory muscle use. GASTROINTESTINAL: Abdomen soft, non-tender, nondistended. MUSCULOSKELETAL: No cyanosis, or edema. BACK: Nontender without obvious deformity. No CVA tenderness. A/P Problem List: (1) Altered mental status ICD Code: R41.82 Status: Acute (2) Respiratory failure ICD Code: J96.90 Status: Acute Assessment and Plan Respiratory failure- extubated 11/15 AMS..improved UDS + Benzos, Cannabinoids Elevated LFT Thrombocytopenia Anemia Plan Neuro: Monitor neurostatus and avoid sedatives CT brain no acute findings Pulm: Continue with oxygen keep sat >92% Bronchodilators CV:Monitor HR and BP keep MAP>65mmHg. Lactic acid 0.9 : Monitor renal function, I/O's, electrolytes replacement per protocol. d/c IVF GI: On Po diet, monitor LFT's, check US liver, hepatitis profile. ID: Monitor for signs of infections ( Fever, WBC) Heme: Monitor CBC Endo: SSI if needed ro glycemic control GI/DVT prophylaxis with Pepcid and Heparin SQ respectively Will sign off and transfer care to [facility] Level 3 Problem Qualifiers (1) Altered mental status: Qualified Code: R40.2431 - Elle coma scale total score 3-8, in the field ( EMT or ambulance) Carmen Moreno MD Nov 16, 2016 07:30
[2016-11-16 08:01] LABS: PLATELET ESTIMATE SMEAR LOW (NORMAL); PLATELET MORPHOLOGY NORMAL (NORMAL); SCAN/DIFF AUTO DIFF CONFIRMED
--- NOTE | 2016-11-16 08:15 | MB ---
cc: LYNDON KO M.D. DATE OF CONSULTATION: 11/15/2016 REASON FOR CONSULTATION Encephalopathy. HISTORY OF PRESENT ILLNESS Mr. Welch is a 70-year-old man who was found by his roommate unresponsive. A large number of opiate pills were found in his room as well. He came to the ER, did not have a gag reflex, was given Narcan with no improvement. He is intubated initially and has since been extubated, has been more alert. NEUROLOGIC EXAMINATION Blood pressure 104/64, pulse 76, respirations 18, temperature 98 degrees. Higher cortical function, he is alert and oriented x3. Has normal recall, normal remote memory. Speech is fluent. Cranial nerves intact. Motor exam, no focal deficits are identified. Reflexes are symmetric. IMAGING CT of the brain is normal. LABORATORY White count 11,900, hemoglobin 13.4, hematocrit 39.7%, platelets 111,000. Sodium 141, potassium 5.7, chloride 105, CO2 33.3, BUN 18, creatinine 1.06, GFR 60, glucose 125, AST 80, ALT 135. Tox screen positive for cannabis and benzodiazepines. IMPRESSION Possible encephalopathy, although at this point his cognitive function appears to be relatively intact. RECOMMENDATION Will obtain an EEG for further evaluation. MD HARSHAL Lewis/JEFE /7:19 PM /8:12 AM
[2016-11-16 08:41] LABS: ALKALINE PHOSPHATASE 86 U/L (45-117); ALT (GPT) 118 U/L (12-78); ANION GAP 4 MEQ/L (5-15); AST (GOT) 65 U/L (15-37); BICARBONATE 29.1 MEQ/L (21.0-32.0); BLOOD UREA NITROGEN 9 MG/DL (7-18); CHLORIDE 108 MEQ/L (98-107); GLOMERULAR FILTRATION RATE 104 ML/MIN (>89); MAGNESIUM 2.2 MG/DL (1.5-2.5); SODIUM (NA) 141 MEQ/L (136-145); TOTAL BILIRUBIN ADULT 0.8 MG/DL (0.2-1.0)
[2016-11-16 08:42] LABS: POTASSIUM 3.8 MEQ/L (3.5-5.1)
[2016-11-16] MEDS: ARTIFICIAL TEARS OPTH SOLN 15 ML BTL EACH EYE SCH ×3 (09:00→18:00)
[2016-11-16] MEDS: DOCUSATE SODIUM 100 MG/10 ML UDC G-TUBE SCH ×2 (09:18→20:20)
[2016-11-16] MEDS: HEPARIN SODIUM - SQ 10,000 UNITS/ML VIAL SQ SCH ×2 (09:18→20:22)
[2016-11-16] MEDS: SODIUM CHLORIDE 0.9% FLUSH 5 ML FLUSH IV FLUSH SCH ×2 (09:19→20:21)
[2016-11-16] MEDS: FAMOTIDINE 20 MG/2 ML VIAL IV PUSH SCH ×2 (09:19→20:21)
[2016-11-16 10:37] LABS: AUTOMATED NEUTROPHIL # 5.7 TH/MM3 (1.8-7.7); BASOPHIL % 0.5 % (0.0-2.0); EOSINOPHIL # 0.1 TH/MM3 (0-0.4); HEMATOCRIT 39.3 % (39.0-51.0); HEMO FLAGS DIFF FINAL; LYMPH % 18.9 % (9.0-44.0); LYMPHOCYTE # 1.5 TH/MM3 (1.0-4.8); MEAN CELL VOLUME 94.6 FL (80.0-100.0); MEAN CORPUSCULAR HEMOGLOBIN 31.6 PG (27.0-34.0); MEAN CORPUSCULAR HGB CONC 33.4 % (32.0-36.0); MONO % 6.4 % (0.0-8.0); NEUT % 73.2 % (16.0-70.0); PLATELET COUNT 113 TH/MM3 (150-450); RED BLOOD COUNT 4.16 MIL/MM3 (4.50-5.90); RED CELL DISTRIBUTION WIDTH 14.5 % (11.6-17.2); WHITE BLOOD COUNT 7.8 TH/MM3 (4.0-11.0)
--- NOTE | 2016-11-16 10:49 | RADRPT ---
EXAM DATE/TIME: 11/16/2016 08:30 [place] COMPARISON: No previous studies available for comparison. INDICATIONS : Abnormal labs. MEDICAL HISTORY : Myocardial infarction. Hypertension. Chronic obstructive pulmonary disease. CHF. Emphysema. SURGICAL HISTORY : Pacemaker. ENCOUNTER: Initial ACUITY: 1 day PAIN SCORE: 2/10 LOCATION: Right upper quadrant MEASUREMENTS: LIVER: 15.8 cm length COMMON DUCT: 7 mm RIGHT KIDNEY: 10.6 x 5.0 x 5.6 cm SPLEEN: 10.5 cm length FINDINGS: Liver is normal size and homogeneously mildly increased echogenicity suggesting hepatocellular diseas e or fatty metamorphosis. There is a small amount of fluid around the region of the dome. Gallbladder is normal with normal wall thickness no evidence of stones and common bile duct measures 7 mm in wid th with normal pancreas and spleen. There may be a minimal trace pericholecystic fluid. CONCLUSION: Abnormal examination. Hyper echoic character of the liver suggesting hepatocellular disease or fatty metamorphosis. Borderline common bile duct at 7 mm with normal pancreas and gallbladder. Questionable faint thin area of pericholecystic fluid. Small amount of free fluid adjacent to the dome of the rig ht lobe of the liver Tor Haddad MD on November 16, 2016 at 10:44 Board Certified Radiologist. This report was verified electronically.
[2016-11-16] MEDS: LORazepam 2 MG/ML VIAL IV PRN ×2 (13:51→20:22)
--- NOTE | 2016-11-16 19:55 | HHI.PR ---
Review/Management Diagnosis possible mild hypoxic encephalopathy--improving Diagnosis/Plan: Subjective Subjective Comments No acute events reported Active Medications Current Medications Medications (Trade) Dose Ordered Sig/Brent Route Start Time Stop Time Status Last Admin (NS Flush) 2 ml UNSCH PRN IV FLUSH 11/15/16 03:45 (NS Flush) 2 ml BID IV FLUSH 11/15/16 09:00 11/16/16 09:19 (Tylenol) 650 mg Q6H PRN PO 11/15/16 03:45 (Morphine Inj) 2 mg Q2H PRN IV 11/15/16 03:45 (Pepcid Inj) 20 mg Q12HR IV PUSH 11/15/16 09:00 11/16/16 09:19 (Versed Inj) 2 mg Q1H PRN IV 11/15/16 03:45 (Ativan Inj) 1 mg Q1H PRN IV 11/15/16 03:45 11/16/16 13:51 (Tears Naturale Opth Soln) 1 drop TID EACH EYE 11/15/16 09:00 (Zofran Inj) 4 mg Q6H PRN IV 11/15/16 03:45 (Reglan Inj) 10 mg Q6H PRN IV 11/15/16 03:45 (Colace Liq) 100 mg Q12HR G-TUBE 11/15/16 09:00 11/16/16 09:18 (Heparin Inj) 5,000 units Q12HR SQ 11/15/16 09:00 11/16/16 09:18 Miscellaneous Information 1 Q361D XX 11/15/16 03:45 11/15/16 03:45 (Chlorhexidine 2% Cloth) 3 pack Taper DAILY@04 TOP 11/15/16 04:00 11/11/17 03:59 11/16/16 04:00 (Chlorhexidine 2% Cloth) 3 pack UNSCH PRN TOP 11/15/16 03:45 Allergies Allergies Coded Allergies Enalapril (Verified Allergy, Severe, 08/07/16) Lisinopril (Verified Allergy, Severe, 08/07/16) Penicillin (Verified Allergy, Severe, SEIZURE A CHILD, 08/07/16) *MDRO Multi-Drug Resistant Organism (Verified Adverse Reaction, Unknown, ) Exam I&O / VS 11/15/16 11/15/16 11/16/16 15:00 23:00 07:00 Intake Total 800 ml 2655 ml 1265 ml Output Total 500 ml 1 ml Balance 300 ml 2655 ml 1264 ml Intake Oral 480 ml 240 ml IV Total 800 ml 2175 ml 1025 ml Output Urine Total 500 ml 1 ml # Voids 1 # Bowel Movements 0 Vital Signs Date Time Temp Pulse Resp B/P Pulse Ox O2 Delivery O2 Flow Rate FiO2 11/16/16 16:00 98.9 78 24 107/69 95 11/16/16 12:00 98.0 74 30 91/54 95 11/16/16 08:00 98.2 69 23 113/61 95 11/16/16 08:00 96 Nasal Cannula 4.00 11/16/16 06:00 73 11/16/16 04:00 60 11/16/16 04:00 99.1 60 28 112/71 95 11/16/16 02:00 61 11/16/16 00:00 68 11/16/16 00:00 99.1 69 31 93/55 96 11/15/16 22:00 71 11/15/16 21:41 92 Nasal Cannula 4.00 11/15/16 20:00 70 11/15/16 20:00 99.5 70 25 82/50 97 Exam Comments alert and oriented times three. normal remote memory, follows commands CN 2-12 normal Motor 5/5 bue and ble Objective Micro and Labs Laboratory Tests Test 11/16/16 11/16/16 11/16/16 06:02 07:50 10:08 White Blood Count 8.6 7.8 Red Blood Count 3.84 4.16 Hemoglobin 12.4 13.1 Hematocrit 36.7 39.3 Mean Corpuscular Volume 95.4 94.6 Mean Corpuscular Hemoglobin 32.4 31.6 Mean Corpuscular Hemoglobin 33.9 33.4 Concent Red Cell Distribution Width 14.3 14.5 Platelet Count 87 113 Mean Platelet Volume 6.9 7.7 Neutrophils (%) (Auto) 69.5 73.2 Lymphocytes (%) (Auto) 21.5 18.9 Monocytes (%) (Auto) 7.6 6.4 Eosinophils (%) (Auto) 1.0 1.0 Basophils (%) (Auto) 0.4 0.5 Neutrophils # (Auto) 6.0 5.7 Lymphocytes # (Auto) 1.8 1.5 Monocytes # (Auto) 0.6 0.5 Eosinophils # (Auto) 0.1 0.1 Basophils # (Auto) 0.0 0.0 CBC Comment AUTO DIFF DIFF FINAL Differential Comment AUTO DIFF CONFIRMED Platelet Estimate LOW Platelet Morphology Comment NORMAL Sodium Level 141 Potassium Level 3.8 Chloride Level 108 Carbon Dioxide Level 29.1 Anion Gap 4 Blood Urea Nitrogen 9 Creatinine 0.74 Estimat Glomerular Filtration 104 Rate Random Glucose 88 Calcium Level 7.8 Phosphorus Level 1.3 Magnesium Level 2.2 Total Bilirubin 0.8 Aspartate Amino Transf 65 (AST/SGOT) Alanine Aminotransferase 118 (ALT/SGPT) Alkaline Phosphatase 86 Total Protein 5.5 Albumin 2.7 Hepatitis A IgM Antibody NEGATIVE Hepatitis B Surface Antigen NEGATIVE Hepatitis B Core IgM Antibody NEGATIVE Hepatitis C Antibody NEGATIVE Date/Time Procedure Status Source Growth 11/15/16 06:18 Aerobic Blood Culture - Preliminary Resulted Blood Peripheral NO GROWTH IN 1 DAY 11/15/16 06:18 Anaerobic Blood Culture - Preliminary Resulted Blood Peripheral NO GROWTH IN 1 DAY 11/15/16 01:15 Urine Culture - Preliminary Resulted Urine Catheterized Urine NO GROWTH IN 24 HOURS. Diagnostic Tests EEG--mild diffuse slowing Leif Ellison PhD Nov 16, 2016 19:55
[2016-11-17] VITALS (11 sets, daily range): BP systolic 104–170; BP diastolic 65–86; PULSE 65–88; RESP 18–20; TEMP 96.1–98.4; O2SAT 92–98
[2016-11-17] MEDS: LORazepam 2 MG/ML VIAL IV PRN ×3 (00:42→15:56)
[2016-11-17] MEDS: RESP: ALBUTEROL 2.5 MG/IPRATROPIUM 0.5 MG NEB (PRN) INH ×3 (01:31→13:02)
[2016-11-17] MEDS: CHLORHEXIDINE GLUCONATE 2 % 1 PACK (2 CLOTHS) TOP SCH (01:43)
[2016-11-17] MEDS: RESP: ALBUTEROL 2.5 MG/IPRATROPIUM 0.5 MG NEB (SCH) NEB ×4 (03:30→21:30)
[2016-11-17 05:35] LABS: ALT (GPT) 96 U/L (12-78); ANION GAP 6 MEQ/L (5-15); AST (GOT) 47 U/L (15-37); BICARBONATE 31.1 MEQ/L (21.0-32.0); BLOOD UREA NITROGEN 8 MG/DL (7-18); CHLORIDE 106 MEQ/L (98-107); GLOMERULAR FILTRATION RATE 120 ML/MIN (>89); POTASSIUM 3.7 MEQ/L (3.5-5.1); SODIUM (NA) 143 MEQ/L (136-145)
[2016-11-17 05:47] LABS: ALKALINE PHOSPHATASE 77 U/L (45-117); TOTAL BILIRUBIN ADULT 0.9 MG/DL (0.2-1.0)
[2016-11-17 05:49] LABS: AUTOMATED NEUTROPHIL # 5.5 TH/MM3 (1.8-7.7); BASOPHIL % 0.5 % (0.0-2.0); EOSINOPHIL # 0.1 TH/MM3 (0-0.4); EOSINOPHIL % 1.9 % (0.0-4.0); HEMATOCRIT 37.7 % (39.0-51.0); HEMO FLAGS DIFF FINAL; LYMPH % 16.6 % (9.0-44.0); LYMPHOCYTE # 1.2 TH/MM3 (1.0-4.8); MEAN CELL VOLUME 93.1 FL (80.0-100.0); MEAN CORPUSCULAR HEMOGLOBIN 32.1 PG (27.0-34.0); MEAN CORPUSCULAR HGB CONC 34.5 % (32.0-36.0); MONO % 7.5 % (0.0-8.0); NEUT % 73.5 % (16.0-70.0); PLATELET COUNT 122 TH/MM3 (150-450); RED BLOOD COUNT 4.05 MIL/MM3 (4.50-5.90); RED CELL DISTRIBUTION WIDTH 14.3 % (11.6-17.2); WHITE BLOOD COUNT 7.5 TH/MM3 (4.0-11.0)
[2016-11-17] MEDS: ARTIFICIAL TEARS OPTH SOLN 15 ML BTL EACH EYE SCH ×3 (09:00→18:00)
[2016-11-17] MEDS: HEPARIN SODIUM - SQ 10,000 UNITS/ML VIAL SQ SCH ×2 (09:06→20:55)
[2016-11-17] MEDS: FAMOTIDINE 20 MG/2 ML VIAL IV PUSH SCH ×2 (09:07→20:55)
[2016-11-17] MEDS: DOCUSATE SODIUM 100 MG/10 ML UDC G-TUBE SCH ×2 (09:07→20:54)
[2016-11-17] MEDS: SODIUM CHLORIDE 0.9% FLUSH 5 ML FLUSH IV FLUSH SCH ×2 (09:08→20:56)
--- NOTE | 2016-11-17 09:21 | HHI.PR ---
Subjective Remarks Patient is not awake and alert. He reports that he is feeling okay. He does not remember the circumstances for being in the hospital. He did admit that he might have taken too many of his pills. Currently denies shortness of breath or chest pain Objective Vitals Vital Signs Date Time Temp Pulse Resp B/P Pulse Ox O2 Delivery O2 Flow Rate FiO2 11/17/16 07:59 95 Nasal Cannula 4.00 11/17/16 06:00 81 11/17/16 04:00 98.0 88 18 155/65 94 11/17/16 04:00 88 11/17/16 02:00 75 11/17/16 00:00 70 11/17/16 00:00 98.0 70 18 104/69 94 11/16/16 22:00 71 11/16/16 21:23 96 Nasal Cannula 4.00 11/16/16 20:00 98.5 79 25 97/66 95 11/16/16 16:00 98.9 78 24 107/69 95 11/16/16 12:00 98.0 74 30 91/54 95 I/O 11/16/16 11/16/16 11/16/16 11/17/16 11/17/16 11/17/16 07:00 15:00 23:00 07:00 15:00 23:00 Intake Total 1265 ml 500 ml 88 ml 240 ml Output Total 1 ml 300 ml 550 ml Balance 1264 ml 200 ml 88 ml -310 ml Intake Oral 240 ml 300 ml 240 ml IV Total 1025 ml 200 ml 88 ml 0 ml Output Urine Total 1 ml 300 ml 550 ml # Voids 1 2 # Bowel Movements 0 1 Result Diagram: 11/17/16 0424 11/17/16 0424 Imaging Last Impressions Liver Ultrasound 11/16/16 0000 Signed Impressions: Service Date/Time: Wednesday, November 16, 2016 08:30 - CONCLUSION: Abnormal examination. Hyper echoic character of the liver suggesting hepatocellular disease or fatty metamorphosis. Borderline common bile duct at 7 mm with normal pancreas and gallbladder. Questionable faint thin area of pericholecystic fluid. Small amount of free fluid adjacent to the dome of the right lobe of the liver Tor Haddad MD Head CT 11/15/16 0017 Signed Impressions: Service Date/Time: October 00:54 - CONCLUSION: 1. No focal or acute intracranial hemorrhage. 2. Bilateral cortical atrophy. Santy Garcia MD Chest X-Ray 11/15/16 0017 Signed Impressions: Service Date/Time: October 00:38 - CONCLUSION: ET tube in good position. No pneumothorax. Santy Garcia MD Objective Remarks GENERAL: Elderly male in no acute distress CARDIOVASCULAR: Normal rate and regular rhythm without murmurs, gallops, or rubs. RESPIRATORY: Patient has diffuse wheezing bilaterally. Air movement is fair. GASTROINTESTINAL: Abdomen soft, non-tender, non-distended. Normal active bowel sounds MUSCULOSKELETAL: Extremities without cyanosis, or edema. NEURO: Alert & Oriented x4 to person, place, time, situation. Moves all ext x4 PSYCH: Appropriate mood and affect. A/P Assessment and Plan 71 Y/O male with: Acute respiratory failure secondary to medication overdose: Benzos, Non intentional. Patient states he probably got his medications mixed up. He also used Marijuana. - S/P intubated on the field by EMS. Currently on 4 L. COPD: Patient reports being on steroid chronically. He still has significant wheezing. Will restart Prednisone 20 m BID. Breathing treatments. Symbicort. Anxiety/Depression - continue Citalopram 20mg QHS, Ativan as needed CHF: Chronic systolic. Not in exacerbation. Function has been improving per patient. Continue Lasix 40mg PO Qday, Carvedilol 12.5mg BID, Pravastatin 40mg QHS, Digoxin 0.25mg Qday. DVT PPx: Lovenox. Social: May need placement. Discharge Planning Stable to transfer to floor Oscar Acosta MD Nov 17, 2016 09:21
[2016-11-17] MEDS: predniSONE 20 MG TAB PO SCH ×2 (09:50→20:55)
[2016-11-17] MEDS: PRAVASTATIN SOD 40 MG TAB PO SCH (20:55)
[2016-11-17] MEDS: CARVEDILOL 12.5 MG TAB PO SCH (20:55)
[2016-11-17] MEDS: CITALOPRAM HYDROBROMIDE 20 MG TAB PO SCH (20:55)
[2016-11-17] MEDS: BUDESONIDE-FORMOTEROL 160/4.5 MCG INHALER INH SCH (21:29)
[2016-11-18] VITALS (8 sets, daily range): BP systolic 129–159; BP diastolic 70–81; PULSE 60–86; RESP 18–19; TEMP 96.8–98.6; O2SAT 91–95
[2016-11-18] MEDS: MORPHINE SULFATE 4 MG/ML INJ IV PRN ×2 (02:27→21:42)
[2016-11-18] MEDS: CHLORHEXIDINE GLUCONATE 2 % 1 PACK (2 CLOTHS) TOP SCH (02:46)
[2016-11-18] MEDS: RESP: ALBUTEROL 2.5 MG/IPRATROPIUM 0.5 MG NEB (SCH) NEB ×4 (04:22→21:16)
[2016-11-18 06:19] LABS: BICARBONATE 33.7 MEQ/L (21.0-32.0); POTASSIUM 4.6 MEQ/L (3.5-5.1)
[2016-11-18 06:32] LABS: HEMATOCRIT 36.7 % (39.0-51.0); MEAN CELL VOLUME 93.9 FL (80.0-100.0); MEAN CORPUSCULAR HEMOGLOBIN 31.6 PG (27.0-34.0); MEAN CORPUSCULAR HGB CONC 33.6 % (32.0-36.0); PLATELET COUNT 123 TH/MM3 (150-450); RED BLOOD COUNT 3.91 MIL/MM3 (4.50-5.90); RED CELL DISTRIBUTION WIDTH 13.9 % (11.6-17.2); REVIEW FLAG FINAL; WHITE BLOOD COUNT 6.9 TH/MM3 (4.0-11.0)
[2016-11-18] MEDS: BUDESONIDE-FORMOTEROL 160/4.5 MCG INHALER INH SCH ×2 (09:16→21:12)
[2016-11-18] MEDS: ARTIFICIAL TEARS OPTH SOLN 15 ML BTL EACH EYE SCH ×3 (09:17→18:07)
[2016-11-18] MEDS: DOCUSATE SODIUM 100 MG/10 ML UDC G-TUBE SCH ×2 (09:18→21:10)
[2016-11-18] MEDS: CARVEDILOL 12.5 MG TAB PO SCH ×2 (09:19→21:11)
[2016-11-18] MEDS: HEPARIN SODIUM - SQ 10,000 UNITS/ML VIAL SQ SCH ×2 (09:19→21:10)
[2016-11-18] MEDS: DIGOXIN 0.25 MG TAB PO SCH (09:19)
[2016-11-18] MEDS: predniSONE 20 MG TAB PO SCH ×2 (09:19→21:11)
[2016-11-18] MEDS: FUROSEMIDE 40 MG TAB PO SCH (09:19)
[2016-11-18] MEDS: FAMOTIDINE 20 MG/2 ML VIAL IV PUSH SCH ×2 (09:20→21:11)
[2016-11-18] MEDS: SODIUM CHLORIDE 0.9% FLUSH 5 ML FLUSH IV FLUSH SCH ×2 (09:20→21:11)
--- NOTE | 2016-11-18 10:18 | HHI.PR ---
Subjective Remarks Patient requiring 5L NC. He is inquiring about SNF when ready for discharged. No chest pain. Objective Vitals Vital Signs Date Time Temp Pulse Resp B/P Pulse Ox O2 Delivery O2 Flow Rate FiO2 11/18/16 08:40 91 Nasal Cannula 5.00 11/18/16 08:00 98.2 86 18 138/81 94 11/18/16 04:29 98.1 60 18 144/70 94 11/18/16 00:25 97.5 75 19 129/70 93 11/17/16 21:34 94 Nasal Cannula 4.00 11/17/16 21:33 96.1 65 20 170/86 92 11/17/16 16:00 97.0 82 18 128/83 94 11/17/16 11:00 98.4 82 18 109/69 93 I/O 11/17/16 11/17/16 11/17/16 11/18/16 11/18/16 11/18/16 07:00 15:00 23:00 07:00 15:00 23:00 Intake Total 240 ml 360 ml 600 ml Output Total 550 ml 550 ml 2 ml Balance -310 ml -190 ml 598 ml Intake Oral 240 ml 360 ml 600 ml IV Total 0 ml Output Urine Total 550 ml 550 ml 2 ml # Voids 2 # Bowel Movements 1 0 Result Diagram: 11/18/1652111/18/16521 Objective Remarks GENERAL: Elderly male in no acute distress CARDIOVASCULAR: Normal rate and regular rhythm without murmurs, gallops, or rubs. RESPIRATORY: Better air movement compared to yesterday. Faint and diffuse expiratory wheezing bilaterally. GASTROINTESTINAL: Abdomen soft, non-tender, non-distended. Normal active bowel sounds MUSCULOSKELETAL: Extremities without cyanosis, or edema. NEURO: Alert & Oriented x4 to person, place, time, situation. Moves all ext x4 PSYCH: Appropriate mood and affect. A/P Assessment and Plan 71 Y/O male with: Acute respiratory failure secondary to medication overdose: Benzos, Non intentional. Patient states he probably got his medications mixed up. He also used Marijuana. He reports that he does have memory issues. He is getting an aid to help him with medications. - S/P intubation on the field by EMS. Currently on 5 L. - Patient reports that he use CPAP at night. Will restart tonight. - Patient counseled to not use illicit drugs. 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 Patient was followed by Neurology. Back to baseline. COPD: Patient reports being on steroid chronically. He still has significant wheezing. Continue Prednisone 20 m BID. Breathing treatments. Symbicort. Anxiety/Depression - continue Citalopram 20mg QHS, Ativan as needed CHF: Chronic systolic. Not in exacerbation. Function has been improving per patient. Continue Lasix 40mg PO Qday, Carvedilol 12.5mg BID, Pravastatin 40mg QHS, Digoxin 0.25mg Qday. DVT PPx: Lovenox. Discharge Planning Will need SNF placement. Oscar Acosta MD Nov 18, 2016 10:18
[2016-11-18] MEDS: RESP: ALBUTEROL 2.5 MG/IPRATROPIUM 0.5 MG NEB (PRN) INH (12:43)
[2016-11-18] MEDS: LORazepam 2 MG/ML VIAL IV PRN ×2 (12:52→18:07)
[2016-11-18] MEDS: PRAVASTATIN SOD 40 MG TAB PO SCH (21:11)
[2016-11-18] MEDS: CITALOPRAM HYDROBROMIDE 20 MG TAB PO SCH (21:11)
[2016-11-19] VITALS (8 sets, daily range): BP systolic 111–188; BP diastolic 17–95; PULSE 66–95; RESP 18–22; TEMP 95.1–98.2; O2SAT 92–98
[2016-11-19] MEDS: RESP: ALBUTEROL 2.5 MG/IPRATROPIUM 0.5 MG NEB (SCH) NEB (01:30)
[2016-11-19] MEDS: CHLORHEXIDINE GLUCONATE 2 % 1 PACK (2 CLOTHS) TOP SCH (01:48)
[2016-11-19] MEDS: RESP: ALBUTEROL 2.5 MG/IPRATROPIUM 0.5 MG NEB (PRN) INH ×2 (04:32→10:09)
[2016-11-19] MEDS: MORPHINE SULFATE 4 MG/ML INJ IV PRN ×2 (06:43→10:32)
[2016-11-19 07:44] LABS: HEMATOCRIT 38.7 % (39.0-51.0); MEAN CELL VOLUME 93.5 FL (80.0-100.0); MEAN CORPUSCULAR HEMOGLOBIN 31.8 PG (27.0-34.0); PLATELET COUNT 178 TH/MM3 (150-450); RED BLOOD COUNT 4.14 MIL/MM3 (4.50-5.90); REVIEW FLAG FINAL; WHITE BLOOD COUNT 10.2 TH/MM3 (4.0-11.0)
[2016-11-19 08:11] LABS: BICARBONATE 32.7 MEQ/L (21.0-32.0); POTASSIUM 4.1 MEQ/L (3.5-5.1)
[2016-11-19] MEDS: FUROSEMIDE 40 MG TAB PO SCH (08:33)
[2016-11-19] MEDS: DOCUSATE SODIUM 100 MG/10 ML UDC G-TUBE SCH (08:33)
[2016-11-19] MEDS: DIGOXIN 0.25 MG TAB PO SCH (08:34)
[2016-11-19] MEDS: CARVEDILOL 12.5 MG TAB PO SCH (08:34)
[2016-11-19] MEDS: ARTIFICIAL TEARS OPTH SOLN 15 ML BTL EACH EYE SCH ×2 (08:35→13:00)
[2016-11-19] MEDS: SODIUM CHLORIDE 0.9% FLUSH 5 ML FLUSH IV FLUSH SCH (08:35)
[2016-11-19] MEDS: BUDESONIDE-FORMOTEROL 160/4.5 MCG INHALER INH SCH (08:35)
[2016-11-19] MEDS: FAMOTIDINE 20 MG/2 ML VIAL IV PUSH SCH (08:35)
[2016-11-19] MEDS: HEPARIN SODIUM - SQ 10,000 UNITS/ML VIAL SQ SCH (08:36)
[2016-11-19] MEDS: predniSONE 20 MG TAB PO SCH (08:49)
[2016-11-19] MEDS: LORazepam 2 MG/ML VIAL IV PRN (08:50)
[2016-11-19] MEDS ORDERED: PRED20 PO (14:53)
[2016-11-19] MEDS ORDERED: FAMO20TA2 PO (14:53)
[2016-11-19] MEDS ORDERED: SYMB160A INH (14:53)
[2016-11-19] MEDS ORDERED: LORA-373 PO (14:53)
--- NOTE | 2016-11-19 14:55 | HHI.DS ---
Discharge Summary Admission Date Nov 15, 2016 at 02:34 Discharge Date: Nov 19, 2016 Admitting Diagnosis altered mental status (1) Respiratory failure ICD Code: J96.90 (2) COPD exacerbation ICD Code: J44.1 (3) Altered mental status ICD Code: R41.82 (4) CHF (congestive heart failure) ICD Code: I50.9 (5) Hypoxia ICD Code: R09.02 Procedures Intubation and extubation Brief History - From Admission 60s-70s year old gentleman who presented to the emergency department having been found by his roommate unresponsive. There were large amount of pills in the room and his roommate says that he does take a lot of opiates. The patient was found not to have a gag reflex, he was given 1.6 of Narcan without improvement. He was intubated without any medications. He was hypotensive and was started on dopamine by EMS. CBC/BMP: 11/19/16 0653 11/19/16 0653 Significant Findings Laboratory Tests Test 11/17/16 11/18/16 11/19/16 04:24 05:22 06:53 Red Blood Count 4.05 MIL/MM3 3.91 MIL/MM3 4.14 MIL/MM3 (4.50-5.90) (4.50-5.90) (4.50-5.90) Hematocrit 37.7 % 36.7 % 38.7 % (39.0-51.0) (39.0-51.0) (39.0-51.0) Platelet Count 122 TH/MM3 123 TH/MM3 (150-450) (150-450) Mean Platelet Volume 6.9 FL 6.9 FL 6.9 FL (7.0-11.0) (7.0-11.0) (7.0-11.0) Neutrophils (%) (Auto) 73.5 % (16.0-70.0) Calcium Level 8.0 MG/DL 8.4 MG/DL (8.5-10.1) (8.5-10.1) Aspartate Amino Transf 47 U/L (15-37) (AST/SGOT) Alanine Aminotransferase 96 U/L (12-78) (ALT/SGPT) Total Protein 5.0 GM/DL (6.4-8.2) Albumin 2.4 GM/DL (3.4-5.0) Hemoglobin 12.3 GM/DL (13.0-17.0) Carbon Dioxide Level 33.7 MEQ/L 32.7 MEQ/L (21.0-32.0) (21.0-32.0) Anion Gap 3 MEQ/L (5-15) 4 MEQ/L (5-15) Estimat Glomerular Filtration 85 ML/MIN (>89) Rate Random Glucose 129 MG/DL 136 MG/DL (74-106) (74-106) Imaging Last Impressions Liver Ultrasound 11/16/16 0000 Signed Impressions: Service Date/Time: Wednesday, November 16, 2016 08:30 - CONCLUSION: Abnormal examination. Hyper echoic character of the liver suggesting hepatocellular disease or fatty metamorphosis. Borderline common bile duct at 7 mm with normal pancreas and gallbladder. Questionable faint thin area of pericholecystic fluid. Small amount of free fluid adjacent to the dome of the right lobe of the liver Tor Haddad MD Head CT 11/15/167 Signed Impressions: Service Date/Time: October 00:54 - CONCLUSION: 1. No focal or acute intracranial hemorrhage. 2. Bilateral cortical atrophy. Santy Garcia MD Chest X-Ray 11/15/1616 Signed Impressions: Service Date/Time: October 00:38 - CONCLUSION: ET tube in good position. No pneumothorax. Santy Garcia MD PE at Discharge GENERAL: Elderly male in no acute distress CARDIOVASCULAR: Normal rate and regular rhythm without murmurs, gallops, or rubs. RESPIRATORY: Better air movement compared to yesterday. Faint and diffuse expiratory wheezing bilaterally. GASTROINTESTINAL: Abdomen soft, non-tender, non-distended. Normal active bowel sounds MUSCULOSKELETAL: Extremities without cyanosis, or edema. NEURO: Alert & Oriented x4 to person, place, time, situation. Moves all ext x4 PSYCH: Appropriate mood and affect. Pt update on day of discharge Patient reports that he is feeling better. He does have a home to go to. He reports that he understand the dangers of using benzodiazepines. He requested the a few tablets of Ativan instead of Xanax for anxiety. He will follow up with the [place]. Hospital Course 71 Y/O male admitted in acute respiratory failure secondary to medication overdose, likely benzodiazepines. Evaluation and treatment course detailed below: Acute respiratory failure secondary to medication overdose: Benzos, Non intentional. Patient states he probably got his medications mixed up. He also used Marijuana. He reports that he does have memory issues. He is getting an aid to help him with medications. - S/P intubation on the field by EMS. Patient was eventually extubated and weaned down to nasal cannula. He is oxygen dependent from COPD. He will continue to use home oxygen. The patient was counseled extensively regarding medication safety. He is also counseled to not use illicit drugs. 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 Patient was followed by Neurology. Back to baseline. COPD: Patient reports being on steroid chronically. He still has significant wheezing. Continue Prednisone taper on discharge. Breathing treatment and Symbicort. 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 Anxiety/Depression - continue Citalopram 20mg QHS, Ativan as needed. He was given a limited supply of Ativan to be used as needed only. CHF: Chronic systolic. Not in exacerbation. Function has been improving per patient. Continue Lasix 40mg PO Qday, Carvedilol 12.5mg BID, Pravastatin 40mg QHS, Digoxin 0.25mg Qday. Pt Condition on Discharge: Good Discharge Disposition: Disch w/ Home Health Serv Discharge Time: <= 30 minutes Discharge Instructions DIET: Follow Instructions for: As Tolerated, No Restrictions Activities you can perform: Regular-No Restrictions, See Additionl Instruction Other Activity Instructions: Per PT instructions. Follow up Referrals: PCP Follow-up - 3-5 Days New Medications: Lorazepam (Lorazepam) 0.5 Mg Tab 0.5 MG PO Q6H PRN ANXIETY #10 Ref 0 TAB Prednisone (Prednisone) 20 Mg Tab 20 MG PO DIRECTED 40 MG twice a day x 3 days, then 20 MG daily x 3 days, then 10 MG daily x 3 days Inflammation #11 Ref 0 TAB Budesonide-Formoterol Inh (Symbicort Inh) 160-4.5 Mcg/Act Aero 2 PUFF INH BID #1 INHALER Famotidine (Famotidine) 20 Mg Tab 20 MG PO Q12H #14 TAB Continued Medications: Albuterol Sulfate 8 GM Inhaler (Ventolin Hfa) 8 Gm Aero 1 PUFF INH Q4 * SHAKE WELL BEFORE USE * COPD #1 BOX Albuterol/Ipratropium (Resp: Albuterol/Ipratropium 2.5 Mg/0.5 Mg) 1 Amp Nebu 1 AMPULE NEB Q4HR WHILE AWAKE NEB PRN SHORTNESS OF BREATH Days 30 ML Allopurinol (Allopurinol) 100 Mg Tab 100 MG PO DAILY Carvedilol 12.5 mg (Carvedilol 12.5 mg) 12.5 Mg Tab 12.5 MG PO BID Citalopram Hydrobromide (Citalopram Hydrobromide) 20 Mg Tab 20 MG PO HS Digoxin 0.25 mg (Digoxin 0.25 mg) 0.25 Mg Tab 0.25 MG PO DAILY Furosemide (Lasix) 40 Mg Tab 40 MG PO DAILY TAB Gabapentin (Neurontin) 300 Mg Cap 300 MG PO TID Pain Management Days 30 CAP Potassium Chloride (K-Dur) 10 Meq Tabcr 10 MEQ PO DAILY Simvastatin 20 mg (Simvastatin 20 mg) 20 Mg Tab 20 MG PO HS TAB Discontinued Medications: Alprazolam (Xanax 0.25 Mg) Alprazolam 0.25 mg Tab 0.5 MG PO TID PRN ANXIETY Days 30 TAB Budesonide-Formoterol Fumarate (Symbicort) 160 Mcg/4.5 Mcg Aer 2 PUFF INH BID * SHAKE WELL BEFORE USE * COPD #1 BOX Levofloxacin (Levaquin 750 Mg Tab) 750 Mg Tab 750 MG PO DAILY Infection Days 3 TAB () 15 Mg Tab 15 MG PO HS *ORAL DISSOLVING TABLET* TAB Oxycodone W/ Acetaminophen (Oxycodone/Acetaminophen 5-325 mg/5Ml) 5 mg/325 mg Tab 1 TAB PO Q6HR PRN pain >5 #12 TAB () 10 Mg Phuc 10 MG PO DIRECTED USE DIRECTED COPD #1 Oscar Salazar MD Nov 19, 2016 14:55
--- NOTE | 2016-11-19 14:55 | HHI.DCPOC ---
Discharge Care Plan Diagnosis: (1) Respiratory failure (2) Altered mental status (3) Hypoxia (4) Weakness Goals to Promote Your Health * To prevent worsening of your condition and complications * To maintain your health at the optimal level Directions to Meet Your Goals Take your medications as prescribed Follow your dietary instruction Follow activity as directed Keep your appointments as scheduled Take your immunizations and boosters as scheduled If your symptoms worsen call your PCP, if no PCP go to Urgent Care Center or Emergency Room Smoking is Dangerous to Your Health. Avoid second hand smoke Call the 24-hour hour crisis hotline for domestic abuse at Oscar Acosta MD Nov 19, 2016 14:55
[2016-11-19] MEDS ORDERED: FAMOTIDINE 20 MG TAB PO SCH (21:00)
--- NOTE | 2016-11-20 09:07 | HHI.FF ---
Face to Face Verification Diagnosis: (1) Hypoxia (2) COPD exacerbation (3) Chronic systolic CHF (congestive heart failure) (4) Respiratory failure Physical Therapy Order: Evaluate and Treat, Improve ambulation, Strength and gait training Home Health Nursing Order: Medical education Signs/symptoms of disease process CHF education Oxygen administration education I have seen patient Nicola Welch on 11/20/16. My clinical findings support the need for the requested home health care services because: Patient has SOB Limited ability to care for self I certify that my clinical findings support that this patient is homebound because: Hx COPD- exertion dyspnea/weakness Unsteady gait/balance Oscar Acosta MD Nov 20, 2016 09:07
== END 2016-11-19 17:09 | disposition home health service (06) | DRG 917 ==
LOC: NEPC 00:14 → NEDA 02:34 → EDBD 02:34 → MERGE 02:34 → HIMW 04:45 → N05A 11-17 10:53
PROVIDERS: ADMIT Family Medicine; ATTEND Family Medicine
PROC: 5A1935Z Respiratory Ventilation, Less than 24 Consecutive Hours (ICD-10-PCS; principal; 2016-11-15)
PROC: 0BH17EZ Insertion of Endotracheal Airway into Trachea, Via Natural or Artificial Opening (ICD-10-PCS; 2016-11-15)
DX: T42.4X1A Poisoning by benzodiazepines, accidental (unintentional), initial encounter (principal); J96.01 Acute respiratory failure with hypoxia; G93.1 Anoxic brain damage, not elsewhere classified; E87.2 Acidosis; I95.9 Hypotension, unspecified; D69.6 Thrombocytopenia, unspecified; I50.22 Chronic systolic (congestive) heart failure; J44.1 Chronic obstructive pulmonary disease with (acute) exacerbation; E87.5 Hyperkalemia; Z99.81 Dependence on supplemental oxygen; D64.9 Anemia, unspecified; R40.2431 Glasgow coma scale score 3-8, in the field [EMT or ambulance]; R68.0 Hypothermia, not associated with low environmental temperature; F32.9 Major depressive disorder, single episode, unspecified; F41.9 Anxiety disorder, unspecified; F12.90 Cannabis use, unspecified, uncomplicated; Y92.009 Unspecified place in unspecified non-institutional (private) residence as the place of occurrence of the external cause; Z88.0 Allergy status to penicillin
CPT/HCPCS: 31500; 36600; 43753; 51702; 70450; 71010; 76705; 80048; 80053; 80074; 80076; 80307; 80320; 80329; 81001; 82140; 82550; 82805; 82948; 83605; 83735; 83880; 84100; 84443; 84484; 85025; 85027; 85610; 85730; 87040; 87086; 87641; 93005; 93306; 94002; 94150; 94640; 94664; 95819; 96365; 96366; 96375; G0480; J0330; J1644; J2060; J2270; J3370; J7030; J7050; J7512